=== PATIENT | male | born 1940 | race Caucasian/White ===

== ENCOUNTER 2017-12-19 23:37 | Inpatient (IN) ==
--- NOTE | 2017-12-20 00:34 | ED ---
HPI General Chief Complaint: Fall Stated Complaint: fall inj rt hip/rt arm tonight Time Seen by Provider: 12/20/17 00:14 Source: patient Mode of arrival: ambulatory Limitations: physical limitation History of Present Illness HPI Narrative: 77-year-old male complains of right hip pain. Patient states that he fell on the right hip this evening. Patient denies loss of consciousness. Patient states that he gently hit his head. Patient denies any headache. Patient denies any neck pain. Patient denies any chest pain or shortness of breath. Patient denies abdominal pain. Patient states that he has minor bruising on the skin on the right arm. Patient states that he probably injure 1 of the fingers on the left hand however no pain now. Patient states that he has sharp pain localized right hip upon weightbearing. Patient denies any pain radiation. Patient states that the pain is worse with movement of right hip joint. On a scale of 1-10 the pain is a 5. Patient has a history of COPD, hyperlipidemia, CAD status post stent placement. Patient is on BiPAP at night for COPD. Patient also has history of aortic aneurysm. Patient has family physician in [place]. Patient also has history of vasculitis and on dapsone and prednisone. complaint: fall Onset (ago): hour(s) Fall from: standing Fall witnessed: yes, by family Place fall occurred: home Loss of consciousness: none Prolonged down time: no Symptoms prior to fall: none Context: tripped/slipped Location of injury: pelvis Severity: moderate Severity scale (1-10): 5 Quality: sharp Associated symptoms (after fall): denies Related Data Home Medications Medication Instructions Recorded Confirmed ascorbic acid (vitamin C) [Vitamin 1 g PO BID 12/19/17 12/20/17 C] aspirin 325 mg PO DAILY 12/19/17 12/20/17 atorvastatin [Lipitor] 20 mg PO HS 12/19/17 12/20/17 budesonide-formoterol [Symbicort] 2 puff INHALATION BID 12/19/17 12/20/17 dapsone 75 mg PO DAILY 12/19/17 12/20/17 omega-3 fatty acids [Fish Oil 2,000 mg PO DAILY 12/19/17 12/19/17 Concentrate] prednisone 3 mg PO DAILY 12/19/17 12/19/17 Allergies Allergy/AdvReac Type Severity Reaction Status Date / Time No Known Allergies Allergy Verified 12/20/17 00:05 Review of Systems Except as stated in HPI: all other systems reviewed are negative FORMERLY [facility], [facility]–1983 Medical History Medical History Ankle fracture, right (Acute) COPD (chronic obstructive pulmonary disease) (Acute) Coronary artery disease (Acute) Diverticulitis (Acute) High cholesterol (Acute) Sleep apnea treated with nocturnal BiPAP (Acute) Vasculitis (Acute) Surgical History Surgical History History of coronary artery stent placement (Acute) Hx of cardiac cath (Acute) S/P colon resection (Acute) Social History Social History Substance History: No History of Abuse Second Hand Smoke Exposure: No Smoking Status: Former smoker How Often Do You Have a Drink Containing Alcohol: Never Recent Travel in [facility] within the Last 8 Weeks: Yes Recent Out of Country Travel within the Last 8 Weeks: No Immunization History Tetanus Immunization: <5 Years Hx Influenza Vaccine This Season: Yes Exam Narrative Exam Narrative: GENERAL: Well-nourished, well-developed patient. SKIN: Focused skin assessment warm/dry. HEAD: Normocephalic. EYES: No scleral icterus. No injection or drainage. NECK: Supple, trachea midline. No JVD or lymphadenopathy. CARDIOVASCULAR: Regular rate and rhythm without murmurs, gallops, or rubs. RESPIRATORY: Breath sounds equal bilaterally. No accessory muscle use. GASTROINTESTINAL: Abdomen soft, non-tender, nondistended. MUSCULOSKELETAL: No cyanosis, or edema. Patient has mild tenderness on palpation anterior lateral aspect the right hip joint. Limited range of motion of the right hip secondary to pain. Sensory motor function distally intact. Minor ecchymosis on the skin on the right arm around the elbow area. No tenderness on palpation Bony structures of the right arm. Full range of motion the right shoulder right elbow and right wrist. No tenderness on palpation left hand. Full range of motion of the fingers. Neurologic exam normal. BACK: Nontender without obvious deformity. No CVA tenderness. Course Initial Documented Vital Signs Temperature 98.6 F 12/19/17 23:43 Pulse Rate 60 12/19/17 23:43 Respiratory Rate 16 12/19/17 23:43 Blood Pressure 126/81 12/19/17 23:43 Pulse Oximetry 92 L 12/19/17 23:43 Last Documented Vital Signs Temperature 98.6 F 12/19/17 23:43 Pulse Rate 58 L 12/20/17 01:16 Respiratory Rate 16 12/20/17 01:16 Blood Pressure 115/63 12/20/17 01:16 Pulse Oximetry 93 L 12/20/17 01:16 Medical Decision Making MDM Narrative Medical decision making narrative: 77-year-old male with right hip injury. Differential Diagnosis Differential Diagnosis: Differential diagnoses include contusion, fracture, dislocation. Lab Data Result diagrams: 12/20/17 00:45 12/20/17 00:45 Lab Results 12/20/17 12/20/17 12/20/17 Range/Units 00:45 00:45 00:45 CBC w Diff Auto diff final WBC 7.4 (4.0-11.0) th/mm3 RBC 3.88 L (4.50-5.90) mil/mm3 Hgb 12.5 L (13.0-17.0) gm/dL Hct 38.4 L (39.0-51.0) % MCV 99.1 (80.0-100.0) fL MCH 32.3 (27.0-34.0) pg MCHC 32.6 (32.0-36.0) % RDW 13.4 (11.6-17.2) % Plt Count 170 (150-450) th/mm3 MPV 8.1 (7.0-11.0) fL Neut % (Auto) 58.4 (16.0-70.0) % Lymph % (Auto) 24.8 (9.0-44.0) % [place] % (Auto) 10.7 H (0.0-8.0) % Eos % (Auto) 3.4 (0.0-4.0) % Baso % (Auto) 2.7 H (0.0-2.0) % Neut # (Auto) 4.3 (1.8-7.7) th/mm3 Lymph # (Auto) 1.8 (1.0-4.8) th/mm3 [place] # (Auto) 0.8 (0.0-0.9) th/mm3 Eos # (Auto) 0.3 (0.0-0.4) th/mm3 Baso # (Auto) 0.2 (0.0-0.2) th/mm3 WBC Differential . Differential Comment . PT 11.1 (9.8-11.6) sec INR 1.1 Ratio APTT 23.9 L (24.3-30.1) sec Sodium 141 (136-145) meq/L Potassium 3.5 (3.5-5.1) meq/L Chloride 108 H (98-107) meq/L Carbon Dioxide 25.7 (21.0-32.0) meq/L Anion Gap 7 (5-15) meq/L BUN 14 (7-18) mg/dL Creatinine 1.50 H (0.60-1.30) mg/dL Estimated GFR 45 L (>89) mL/min Random Glucose 111 H (74-106) mg/dL Calcium 8.4 L (8.5-10.1) mg/dL Blood Type Blood Type Recheck Antibody Screen 12/20/17 Range/Units 00:45 CBC w Diff WBC (4.0-11.0) th/mm3 RBC (4.50-5.90) mil/mm3 Hgb (13.0-17.0) gm/dL Hct (39.0-51.0) % MCV (80.0-100.0) fL MCH (27.0-34.0) pg MCHC (32.0-36.0) % RDW (11.6-17.2) % Plt Count (150-450) th/mm3 MPV (7.0-11.0) fL Neut % (Auto) (16.0-70.0) % Lymph % (Auto) (9.0-44.0) % [place] % (Auto) (0.0-8.0) % Eos % (Auto) (0.0-4.0) % Baso % (Auto) (0.0-2.0) % Neut # (Auto) (1.8-7.7) th/mm3 Lymph # (Auto) (1.0-4.8) th/mm3 [place] # (Auto) (0.0-0.9) th/mm3 Eos # (Auto) (0.0-0.4) th/mm3 Baso # (Auto) (0.0-0.2) th/mm3 WBC Differential Differential Comment PT (9.8-11.6) sec INR Ratio APTT (24.3-30.1) sec Sodium (136-145) meq/L Potassium (3.5-5.1) meq/L Chloride (98-107) meq/L Carbon Dioxide (21.0-32.0) meq/L Anion Gap (5-15) meq/L BUN (7-18) mg/dL Creatinine (0.60-1.30) mg/dL Estimated GFR (>89) mL/min Random Glucose (74-106) mg/dL Calcium (8.5-10.1) mg/dL Blood Type O Positive Blood Type Recheck Required Antibody Screen Negative Imaging Data Radiologist's impression: Hip X-Ray 12/20/17 00:23 CONCLUSION: Femoral neck fracture. Pelvis X-Ray 12/20/17 00:23 CONCLUSION: Fracture of the right femoral neck. Chest X-Ray 12/20/17 00:47 CONCLUSION: The lungs are clear. Discharge Plan Discharge Disposition Patient Disposition: 30 Still Patient Physicians Team ED Provider: Umair Cuba Primary Care Provider: Primary Care Valery Bellamy Attending Provider: Aisha Bernardo Discharge Interventions Interventions: Vital Signs Last Done: 12/20/17 01:16 Status ED Status: Admitted Patient
--- NOTE | 2017-12-20 00:57 | XR ---
EXAM DATE: 12/20/2017 12:48 AM EDT AGE/SEX: 77 years / Male INDICATIONS: Right hip pain post fall CLINICAL DATA: This is the patient's initial encounter. Patient reports that signs and symptoms have been present for 1 day and indicates a pain score of 8/10. MEDICAL/SURGICAL HISTORY: None. None. COMPARISON: No prior exams available for comparison. FINDINGS: The bony pelvic ring is intact. Diffuse osteopenia. The arcuate lines the sacrum or symmetric. There is a fracture through the neck of the right femur. Multiple calcified phleboliths in the pelvis. Vasc ular calcification in the femoral region. CONCLUSION: Fracture of the right femoral neck. Electronically signed by: Ramón Mills MD 12/20/2017 12:56 AM EDT
--- NOTE | 2017-12-20 00:58 | XR ---
EXAM DATE: 12/20/2017 12:48 AM EDT AGE/SEX: 77 years / Male INDICATIONS: Right hip pain post fall CLINICAL DATA: This is the patient's initial encounter. Patient reports that signs and symptoms have been present for 1 day and indicates a pain score of 8/10. MEDICAL/SURGICAL HISTORY: None. None. COMPARISON: HPO, PELVIS AP 1V, 12/20/2017. . FINDINGS: There is a fracture through the neck of the femur with minimal separation medially and possible impac tion superiorly. Disruption of the secondary trabecular pattern. The bony acetabulum appears grossly intact. There is osteopenia. CONCLUSION: Femoral neck fracture. Electronically signed by: Ramón Mills MD 12/20/2017 12:56 AM EDT
[2017-12-20] MEDS ORDERED: Sod Chloride 0.9% Inj 1,000 ML IV.CONT SCH (01:00)
--- NOTE | 2017-12-20 01:08 | XR ---
EXAM DATE: 12/20/2017 1:04 AM EDT AGE/SEX: 77 years / Male INDICATIONS: Trauma to chest post fall today CLINICAL DATA: This is the patient's initial encounter. Patient reports that signs and symptoms have been present for 1 day and indicates a pain score of 0/10. MEDICAL/SURGICAL HISTORY: None. None. COMPARISON: No prior exams available for comparison. FINDINGS: A single AP view of the chest demonstrates the lungs to be symmetrically aerated without evidence of mass, infiltrate or effusion. No evidence of pneumothorax. The cardiomediastinal contours are unrema rkable. Osseous structures are intact. CONCLUSION: The lungs are clear. Electronically signed by: Ramón Mills MD 12/20/2017 1:07 AM EDT
[2017-12-20 01:12] LABS: Potassium 3.5 meq/L (3.5-5.1)
[2017-12-20 01:15] LABS: Calcium 8.4 mg/dL (8.5-10.1); Carbon Dioxide 25.7 meq/L (21.0-32.0)
[2017-12-20 01:18] LABS: Activated Partial Thrombo Time 23.9 sec (24.3-30.1); INR 1.1 Ratio; Prothrombin Time 11.1 sec (9.8-11.6)
[2017-12-20 01:29] LABS: Baso # (Auto) 0.2 th/mm3 (0.0-0.2); Baso % (Auto) 2.7 % (0.0-2.0); Eos # (Auto) 0.3 th/mm3 (0.0-0.4); Eos % (Auto) 3.4 % (0.0-4.0); Hematocrit 38.4 % (39.0-51.0); Hemoglobin 12.5 gm/dL (13.0-17.0); Lymph # (Auto) 1.8 th/mm3 (1.0-4.8); Lymph % (Auto) 24.8 % (9.0-44.0); Mean Corpuscular HGB Conc 32.6 % (32.0-36.0); Mean Corpuscular Hemoglobin 32.3 pg (27.0-34.0); Mean Corpuscular Volume 99.1 fL (80.0-100.0); Mean Platelet Volume 8.1 fL (7.0-11.0); Mono # (Auto) 0.8 th/mm3 (0.0-0.9); Mono % (Auto) 10.7 % (0.0-8.0); Neut # (Auto) 4.3 th/mm3 (1.8-7.7); Neut % (Auto) 58.4 % (16.0-70.0); Platelet Count 170 th/mm3 (150-450); Red Blood Count 3.88 mil/mm3 (4.50-5.90); Red Cell Distribution Width 13.4 % (11.6-17.2); White Blood Count 7.4 th/mm3 (4.0-11.0)
[2017-12-20] MEDS ORDERED: Temazepam 15 MG Capsule PO PRN (01:32)
[2017-12-20] MEDS ORDERED: Bisacodyl 10 MG Supp RECTAL PRN ×2 (01:32→16:02)
[2017-12-20] MEDS ORDERED: Morphine Sulfate Inj 2 MG/ML Vial IV.PUSH PRN (01:33)
[2017-12-20] MEDS ORDERED: Chlorhexidine Gluconate 2% 1 Pack (2 Cloths) TOPICAL SCH (03:45)
[2017-12-20] MEDS ORDERED: Metoprolol Tartrate 25 MG Tablet PO SCH (03:45)
[2017-12-20] MEDS: Sod Chloride 0.9% Inj 1,000 ML IV.CONT SCH ×2 (03:51→13:41)
[2017-12-20] MEDS ORDERED: Sodium Chlor 0.9% Inj 500 ML IV.SIG SCH (04:00)
[2017-12-20 04:38] LABS: Bacteria,Urine Rare /hpf; Bilirubin,Urine Negative (Negative); Clarity,Urine Hazy (Clear); Color,Urine Yellow (Yellw/Straw); Glucose,Urine (UA) Negative (Negative); Hyaline Casts,Urine 3 /lpf (0-3); Leukocyte Esterase,Urine Negative (Negative); Mucus,Urine Few /lpf (Occasional); Nitrite,Urine Negative (Negative); Specific Gravity,Urine 1.013 (1.002-1.035)
--- NOTE | 2017-12-20 04:39 | P.HPIM ---
History of Present Illness Primary Care Physician: No Primary Care Physician Chief Complaint: right hip pain History of Present Illness: 77-year-old male with a history of cad, copd, sleep apnea, AAA (unknown size) and hld presented to the ED with complaints of right hip pain. 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 Patient states that he fell on his right hip this evening after loosing his balance stepping near a curb. Patient denies loss of consciousness but did gently hit his head on the side of the car. He states the pain is a sharp, intermittent pain, 6/10, to the right hip with no radiation or associated symptoms. Worse with movement and better with pain medication. Patient denies any chest pain or shortness of breath. Patient is a very athletic person, gym daily and he walks 3 miles a day. Inpatient Certification: I certify that the inpatient services were ordered in accordance with Medicare regulations governing the order. This includes certification that hospital inpatient services are reasonable and necessary and in the case of services not specified as inpatient-only under 42 CFR 419.22(n), that they are appropriately provided as inpatient services in accordance to with the 2-midnight benchmark under 43 CFR 412.3(e) Estimated Total Length of Stay (Days): 2 Plans for Post Hospital Care: Not yet determined Review of Systems All other systems reviewed negative except as stated in HPI PMFSH - History History Provided By: Patient - Medical History Medical History: Medical History (Last Reviewed 12/20/17 @ 00:32 by Umair Cuba MD) Ankle fracture, right COPD (chronic obstructive pulmonary disease) Coronary artery disease Diverticulitis High cholesterol Sleep apnea treated with nocturnal BiPAP Vasculitis - Surgical History Surgical History: Surgical History (Last Reviewed 12/20/17 @ 00:32 by Umair Cuba MD) History of coronary artery stent placement Hx of cardiac cath S/P colon resection - Family History Family History: Family History (Last Updated 12/20/17 @ 04:39 by BARRINGTON Reich) Other No history of cancer - Tobacco History Second Hand Smoke Exposure: No Tobacco Use In Past 30 Days: No Smoking Status: Former smoker Tobacco Type: Cigarettes - Alcohol History How Often Do You Have a Drink Containing Alcohol: Never - Substance Use History Substance History: No History of Abuse - Travel History Recent Travel in the [facility] Within the Last 8 Weeks: Yes Recent Travel Out of the Country Within the Last 8 Weeks: No - Immunization History Tetanus Immunization: <5 Years Hx Influenza Vaccine This Season: Yes Medications and Allergies Active Medications: Active Medications Acetaminophen (Tylenol) 650 mg PO Q4H PRN PRN Reason: Temp > 100.4 Hydrocodone Bitart/Acetaminophen (Oolitic 5/325) 1 tab PO Q4H PRN PRN Reason: PAIN 3-5 Al Hydroxide/Mg Hydroxide (Milk Of Magnesia Liq) 30 ml PO Q12H PRN PRN Reason: Mild Constipation Atorvastatin Calcium (Lipitor) 20 mg PO HS [facility] Bisacodyl (Dulcolax Supp) 10 mg RECTAL DAILY PRN PRN Reason: SEVERE CONSITIPATION Budesonide/Formoterol Fumarate (Symbicort 80/4.5 Mcg Inh) 2 puff INH BID [facility] Chlorhexidine Gluconate (Chlorhexidine 2% Cloth) 3 pack TOPICAL PHYSIOTHERAPY ASSISTANT [facility] Stop: 12/23/17 03:44 Dapsone (Dapsone) 75 mg PO DAILY [facility] Sodium Chloride (Ns Inj) 1,000 mls @ 100 mls/hr IV.CONT .Q10H [facility] Last Admin: 12/20/17 01:04 Dose: 100 mls/hr Sodium Chloride (Ns Inj) 1,000 mls @ 100 mls/hr IV.CONT .Q10H [facility] Lactated Ringer's (Lr 1000 Ml Inj) 1,000 mls @ 30 mls/hr IV.SIG .Q24H [facility] Stop: 12/23/17 03:44 Sodium Chloride (Ns Inj) 500 mls @ 30 mls/hr IV.SIG .Q10H [facility] Stop: 12/23/17 03:44 Lactulose (Lactulose Liq) 30 ml PO DAILY PRN PRN Reason: SEVERE CONSITIPATION Metoprolol Tartrate (Lopressor) 25 mg PO PHYSIOTHERAPY ASSISTANT [facility] Stop: 12/23/17 03:44 Morphine Sulfate (Morphine Inj) 2 mg IV.PUSH Q4H PRN PRN Reason: PAIN 6-10 Ondansetron HCl (Zofran Inj) 4 mg IV.PUSH Q6H PRN PRN Reason: NAUSEA OR VOMITING Povidone Iodine (Betadine 5% Antisepsis Kit) 1 applicatio EACH NARE PHYSIOTHERAPY ASSISTANT [facility] Stop: 12/23/17 03:44 Prednisone (Deltasone) 3 mg PO DAILY [facility] Senna/Docusate Sodium (Tamiko-Colace) 1 tab PO BID [facility] Sennosides (Senokot) 17.2 mg PO Q12H PRN PRN Reason: Moderate Constipation Temazepam (Restoril) 15 mg PO HS PRN PRN Reason: INSOMNIA Allergies Allergy/AdvReac Type Severity Reaction Status Date / Time No Known Allergies Allergy Verified 12/20/17 00:05 Home Medications Medication Instructions Recorded Confirmed Type ascorbic acid (vitamin C) [Vitamin 1 g PO BID 12/19/17 12/20/17 History C] aspirin 325 mg PO DAILY 12/19/17 12/20/17 History atorvastatin [Lipitor] 20 mg PO HS 12/19/17 12/20/17 History budesonide-formoterol [Symbicort] 2 puff INHALATION BID 12/19/17 12/20/17 History dapsone 75 mg PO DAILY 12/19/17 12/20/17 History omega-3 fatty acids [Fish Oil 2,000 mg PO DAILY 12/19/17 12/19/17 History Concentrate] prednisone 3 mg PO DAILY 12/19/17 12/19/17 History Exam Vital signs: Vital Signs 12/19/17 23:43 12/20/17 01:16 Temperature 98.6 F Pulse Rate 60 58 L Respiratory Rate 16 16 Blood Pressure 126/81 115/63 Pulse Oximetry 92 L 93 L Intake & Output 12/19/17 12/19/17 12/20/17 06:59 18:59 06:59 Weight 92.8 kg Other: Weight On Admission 89.811 kg Narrative: GENERAL: This is a well-nourished, well-developed patient, in no apparent distress. SKIN: Right hip ecchymotic EYES: Pupils equal round and reactive, no scleral edema or drainage CARDIOVASCULAR: Regular rate and rhythm without murmurs, gallops, or rubs. RESPIRATORY: Clear to auscultation. Breath sounds equal bilaterally. No wheezes , rales, or rhonchi. GASTROINTESTINAL: Abdomen soft, non-tender, nondistended. Normal active bowel sounds MUSCULOSKELETAL: Extremities without clubbing, cyanosis, or edema. NEURO: Alert & Oriented x4 to person, place, time, situation. Limited ROM to right lower extremity Results - Labs CBC & Chem 7: 12/20/17 00:45 12/20/17 00:45 Labs: Short CBC 12/20/17 Range/Units 00:45 WBC 7.4 (4.0-11.0) th/mm3 Hgb 12.5 L (13.0-17.0) gm/dL Hct 38.4 L (39.0-51.0) % Plt Count 170 (150-450) th/mm3 BMP 12/20/17 00:45 Sodium 141 Potassium 3.5 Chloride 108 H Carbon Dioxide 25.7 BUN 14 Creatinine 1.50 H Calcium 8.4 L - Imaging Impressions Hip X-Ray 12/20/17 00:23 CONCLUSION: Femoral neck fracture. Pelvis X-Ray 12/20/17 00:23 CONCLUSION: Fracture of the right femoral neck. Chest X-Ray 12/20/17 00:47 CONCLUSION: The lungs are clear. Caprini VTE Risk Assessment Caprini VTE Risk Assessment: Moderate/High Risk (score >= 2) Caprini Risk Assessment Model: Point Value = 1 Point Value = 2 Point Value = 3 Point Value = 5 Age 41-60 Minor surgery BMI > 25 kg/m2 Swollen legs Varicose veins or History of unexplained or recurrent spontaneous Oral contraceptives or hormone replacement Sepsis (< 1 month) Serious lung disease, including pneumonia (< 1 month) Abnormal pulmonary function Acute myocardial infarction Congestive heart failure (< 1 month) History of inflammatory bowel disease Medical patient at bed rest Age 61-74 Arthroscopic surgery Major open surgery (> 45 min) Laparoscopic surgery (> 45 min) Malignancy Confined to bed (> 72 hours) Immobilizing plaster cast Central venous access Age >= 75 History of VTE Family history of VTE Factor V Leiden Prothrombin [id number] Lupus anticoagulant Anticardiolipin antibodies Elevated serum homocysteine Heparin-induced thrombocytopenia Other congenital or acquired thrombophilia Stroke (< 1 month) Elective arthroplasty Hip, pelvis, or leg fracture Acute spinal cord injury (< 1 month) Prophylaxis Regimen: Total Risk Factor Score Risk Level Prophylaxis Regimen 0-1 Low Early ambulation 2 Moderate Order ONE of the following: *Sequential Compression Device (SCD) *Heparin 5000 units SQ BID 3-4 Higher Order ONE of the following medications: *Heparin 5000 units SQ TID *Enoxaparin/Lovenox 40 mg SQ daily (WT < 150 kg, CrCl > 30 mL/min) *Enoxaparin/Lovenox 30 mg SQ daily (WT < 150 kg, CrCl > 10-29 mL/min) *Enoxaparin/Lovenox 30 mg SQ BID (WT < 150 kg, CrCl > 30 mL/min) AND/OR *Sequential Compression Device (SCD) 5 or more Highest Order ONE of the following medications: *Heparin 5000 units SQ TID (Preferred with Epidurals) *Enoxaparin/Lovenox 40 mg SQ daily (WT < 150 kg, CrCl > 30 mL/min) *Enoxaparin/Lovenox 30 mg SQ daily (WT < 150 kg, CrCl > 10-29 mL/min) *Enoxaparin/Lovenox 30 mg SQ BID (WT < 150 kg, CrCl > 30 mL/min) AND *Sequential Compression Device (SCD) Assessment and Plan - Plan 77-year-old male with a history of cad, copd, and hld presented to the ED with complaints of right hip pain. Femoral neck fracture, right Hip x-ray reviewed and shows a femoral neck fracture. -Consult orthopedics -N.p.o., IVF -Pain management with IV morphine -Patient may need rehab or home health in [place] will consult case management for assistance. Acute kidney injury, creatinine 1.5, unknown baseline, patient denies any history -Cont IVF, Trend creatinine COPD, not in exacerbation -Resume home medications, duo nebs as needed Hyperlipidemia, chronic -Resume home medications, cardiac diet with no longer n.p.o. DVT prophylaxis: SCDs to non-affected leg Discussed Condition With: Patient and RN H&P: Quality - VTE Deep Vein Thrombosis/Pulmonary Embolism Present on Admission: No
[2017-12-20] MEDS ORDERED: Senna/Docusate Sodium 8.6/50 MG Tablet PO SCH (09:00)
[2017-12-20] MEDS: predniSONE 1 MG Tablet PO SCH (09:46)
--- NOTE | 2017-12-20 10:13 | P.CONOP ---
[facility] Orthopedics Consult Note - [facility] Consult date: 12/20/17 Chief complaint: fracture Right femoral neck Narrative: 77-year-old male with a history of cad, copd, sleep apnea, AAA presented to the ED with complaints of right hip pain. Patient is from [place] here visiting. is an a RN. Patient states that he fell on his right hip this evening after loosing his balance stepping near a curb. Patient denies loss of consciousness but did gently hit his head on the side of the car. He states the pain is a sharp, intermittent pain, 6/10, to the right hip with no radiation or associated symptoms. Worse with movement and better with pain medication. Patient denies any chest pain or shortness of breath. Patient is a very athletic person, gym daily and he walks 3 miles a day. The patient was admitted to the hospital after I had discussed the diagnosis with the emergency room physician. The ER physician had asked that the patient could drive back home prior to having the fracture addressed. I recommended admission. Review of Systems A 12 point review of systems was reviewed and is negative unless as specified in the history of present illness. [facility] - History History Provided By: Patient - Medical History Medical History: Medical History (Last Reviewed 12/20/17 @ 07:14 by Kyle Vergara) Ankle fracture, right COPD (chronic obstructive pulmonary disease) Coronary artery disease Diverticulitis High cholesterol Sleep apnea treated with nocturnal BiPAP Vasculitis - Surgical History Surgical History: Surgical History (Last Reviewed 12/20/17 @ 07:14 by Kyle Vergara) History of coronary artery stent placement Hx of cardiac cath S/P colon resection - Family History Family History: Family History (Last Updated 12/20/17 @ 04:39 by BARRINGTON Reich) Other No history of cancer - Tobacco History Second Hand Smoke Exposure: No Tobacco Use In Past 30 Days: No Smoking Status: Former smoker Tobacco Type: Cigarettes - Alcohol History How Often Do You Have a Drink Containing Alcohol: Never - Substance Use History Substance History: No History of Abuse - Travel History Recent Travel in the [place] Within the Last 8 Weeks: Yes Recent Travel Out of the Country Within the Last 8 Weeks: No - Immunization History Tetanus Immunization: <5 Years Hx Influenza Vaccine This Season: Yes Medications and Allergies Active Medications: Active Medications Acetaminophen (Tylenol) 650 mg PO Q4H PRN PRN Reason: Temp > 100.4 Hydrocodone Bitart/Acetaminophen (Honaker 5/325) 1 tab PO Q4H PRN PRN Reason: PAIN 3-5 Al Hydroxide/Mg Hydroxide (Milk Of Magnesia Liq) 30 ml PO Q12H PRN PRN Reason: Mild Constipation Albuterol (Duoneb Neb (Prn)) 1 ampul NEB Q4HR NEB PRN PRN Reason: SHORTNESS OF BREATH Atorvastatin Calcium (Lipitor) [address] [facility] Bisacodyl (Dulcolax Supp) 10 mg RECTAL DAILY PRN PRN Reason: SEVERE CONSITIPATION Budesonide/Formoterol Fumarate (Symbicort 80/4.5 Mcg Inh) 2 puff INH BID [facility] Chlorhexidine Gluconate (Chlorhexidine 2% Cloth) 3 pack TOPICAL JIG FILLER [facility] Stop: 12/23/17 03:44 Dapsone (Dapsone) 75 mg PO DAILY [facility] Last Admin: 12/20/17 09:46 Dose: 75 mg Sodium Chloride (Ns Inj) 1,000 mls @ 100 mls/hr IV.CONT .Q10H [facility] Last Admin: 12/20/17 03:51 Dose: 100 mls/hr Lactated Ringer's (Lr 1000 Ml Inj) 1,000 mls @ 30 mls/hr IV.SIG .Q24H [facility] Stop: 12/23/17 03:44 Sodium Chloride (Ns Inj) 500 mls @ 30 mls/hr IV.SIG .Q10H [facility] Stop: 12/23/17 03:44 Lactulose (Lactulose Liq) 30 ml PO DAILY PRN PRN Reason: SEVERE CONSITIPATION Metoprolol Tartrate (Lopressor) 25 mg PO JIG FILLER [facility] Stop: 12/23/17 03:44 Morphine Sulfate (Morphine Inj) 2 mg IV.PUSH Q4H PRN PRN Reason: PAIN 6-10 Last Admin: 12/20/17 04:34 Dose: 2 mg Ondansetron HCl (Zofran Inj) 4 mg IV.PUSH Q6H PRN PRN Reason: NAUSEA OR VOMITING Povidone Iodine (Betadine 5% Antisepsis Kit) 1 applicatio EACH NARE JIG FILLER [facility] Stop: 12/23/17 03:44 Prednisone (Deltasone) 3 mg PO DAILY [facility] Last Admin: 12/20/17 09:46 Dose: 3 mg Senna/Docusate Sodium (Tamiko-Colace) 1 tab PO BID [facility] Last Admin: 12/20/17 09:36 Dose: Not Given Sennosides (Senokot) 17.2 mg PO Q12H PRN PRN Reason: Moderate Constipation Allergies Allergy/AdvReac Type Severity Reaction Status Date / Time No Known Allergies Allergy Verified 12/20/17 00:05 Home Medications Medication Instructions Recorded Confirmed Type ascorbic acid (vitamin C) [Vitamin 1 g PO BID 12/19/17 12/20/17 History C] aspirin 325 mg PO DAILY 12/19/17 12/20/17 History atorvastatin [Lipitor] 20 mg PO HS 12/19/17 12/20/17 History budesonide-formoterol [Symbicort] 2 puff INHALATION BID 12/19/17 12/20/17 History dapsone 75 mg PO DAILY 12/19/17 12/20/17 History omega-3 fatty acids [Fish Oil 2,000 mg PO DAILY 12/19/17 12/19/17 History Concentrate] prednisone 3 mg PO DAILY 12/19/17 12/19/17 History Exam Vital signs: Vital Signs 12/19/17 23:43 12/20/17 01:16 12/20/17 04:00 Temperature 98.6 F 98.9 F Pulse Rate 60 58 L 60 Respiratory Rate 16 16 17 Blood Pressure 126/81 115/63 134/75 Pulse Oximetry 92 L 93 L 92 L 12/20/17 08:00 Temperature 99.2 F Pulse Rate 64 Respiratory Rate 16 Blood Pressure 116/61 Pulse Oximetry 93 L Intake & Output 12/19/17 12/20/17 12/20/17 18:59 06:59 18:59 Weight 92.8 kg Other: # Voids 1 Weight On Admission 89.811 kg Narrative: GENERAL: The patient is awake, alert and oriented x3. The patient is no significant distress. The patient's is at the bedside with him. PSYCHIATRIC: Normal affect, insight, and judgment. HEENT: Head is atraumatic. Oropharynx is moist. Extraocular muscles are intact. NECK: Non-tender and supple. LUNGS: No audible wheezing. He has normal inspiratory effort with no signs of dyspnea HEART: Regular rate and rhythm. ABDOMEN: Soft, nontender, and nondistended. BACK: No CVA tenderness. EXTREMITIES/SKIN: The right hip has some mild swelling. No wounds are noted. The patient's sensation is intact on the right foot. He actively move the toes well. He has a 2+ dorsalis pedis pulse. Examination of the bilateral upper extremities and the left lower extremity shows normal alignment with good range of motion. Results - Labs Result Diagrams: 12/20/17 00:45 12/20/17 00:45 Labs: Laboratory Results - last 24 hr 12/20/17 12/20/17 12/20/17 00:45 00:45 00:45 CBC w Diff Auto diff final WBC 7.4 RBC 3.88 L Hgb 12.5 L Hct 38.4 L MCV 99.1 MCH 32.3 MCHC 32.6 RDW 13.4 Plt Count 170 MPV 8.1 Neut % (Auto) 58.4 Lymph % (Auto) 24.8 Lucas % (Auto) 10.7 H Eos % (Auto) 3.4 Baso % (Auto) 2.7 H Neut # (Auto) 4.3 Lymph # (Auto) 1.8 Lucas # (Auto) 0.8 Eos # (Auto) 0.3 Baso # (Auto) 0.2 WBC Differential . Differential Comment . PT 11.1 INR 1.1 APTT 23.9 L Sodium 141 Potassium 3.5 Chloride 108 H Carbon Dioxide 25.7 Anion Gap 7 BUN 14 Creatinine 1.50 H Estimated GFR 45 L Random Glucose 111 H Calcium 8.4 L Urine Color Urine Clarity Urine pH Ur Specific [place] Urine Protein Urine Glucose (UA) Urine Ketones Urine Occult Blood Urine Nitrate Urine Bilirubin Urine Urobilinogen Ur Leukocyte Esterase Urine RBC Urine WBC Urine Bacteria Hyaline Casts Urine Mucus Micro UA Comment Urine Culture Comments Blood Type Blood Type Recheck Antibody Screen 12/20/17 12/20/17 00:45 04:20 CBC w Diff WBC RBC Hgb Hct MCV MCH MCHC RDW Plt Count MPV Neut % (Auto) Lymph % (Auto) Lucas % (Auto) Eos % (Auto) Baso % (Auto) Neut # (Auto) Lymph # (Auto) Lucas # (Auto) Eos # (Auto) Baso # (Auto) WBC Differential Differential Comment PT INR APTT Sodium Potassium Chloride Carbon Dioxide Anion Gap BUN Creatinine Estimated GFR Random Glucose Calcium Urine Color Yellow Urine Clarity Hazy H Urine pH 5.0 Ur Specific [place] 1.013 Urine Protein Negative Urine Glucose (UA) Negative Urine Ketones Negative Urine Occult Blood Negative Urine Nitrate Negative Urine Bilirubin Negative Urine Urobilinogen 2.0 H Ur Leukocyte Esterase Negative Urine RBC 1 Urine WBC 1 Urine Bacteria Rare H Hyaline Casts 3 Urine Mucus Few H Micro UA Comment Culture not ind Urine Culture Comments Culture not ind Blood Type O Positive Blood Type Recheck Required Antibody Screen Negative - Diagnostic results Imaging: Impressions Hip X-Ray 12/20/17 00:23 CONCLUSION: Femoral neck fracture. The femoral neck fracture is mildly displaced in the mid cervical region. There is a little bit of valgus impaction with some mild shortening. Pelvis X-Ray 12/20/17 00:23 CONCLUSION: Fracture of the right femoral neck. I have reviewed the images for this radiology study. I agree with the interpretation given by the radiologist. Chest X-Ray 12/20/17 00:47 CONCLUSION: The lungs are clear. Assessment and Plan - Assessment and Plan Right hip mildly displaced femoral neck fracture. We discussed that this is a serious condition effecting this patient's extremity. Nonoperative and operative options were discussed and reviewed. Potential consequences of both of these options were reviewed. I do recommend surgical management for this condition. Nonoperative management has significant chance for failure including displacement of the femoral neck fracture which could lead to inability to ambulate and significant dysfunction of the right hip and lower extremity. We discussed 2 different operative options including closed reduction and percutaneous screw fixation versus right hip hemiarthroplasty. We discussed all of the risks and benefits associated with each of these options and we talked about postoperative rehabilitation and weightbearing status associated with each of these options. We discussed risks of failure of the surgeries and need for reoperation which used of these options. We discussed how these options may affect his early and long-term recovery and ability to travel, etc. Based on these conversations the patient has decided to move forward with a right hip hemiarthroplasty. The patient would like to move forward with urgent surgical management for this condition. The risks and benefits of surgical management have been discussed in detail. The risks of surgery include, but are not limited to, injury to nerves, blood vessels, bleeding, infection, non-healing; loss of range on motion , dysfunction or weakness of the associated joints; leg length inequality, dislocation, blood clots, pneumonia, stroke, heart attack, and . - Attending Attestation Attending Attestation: A mid level provider in my office, nurse practitioner or PA, may see this patient on a follow up basis and continue to implement the plan including: starting or adjusting medications, injections of muscle, tendons, bursa or joints, cast application, orthotic or brace application, physical therapy, further radiographic studies including X-ray, MRI, CT, ultrasound or bone scan , vascular studies, neurological studies, or other specialist consultations, and proceeding with surgical management as appropriate.
[2017-12-20] MEDS: Budesonide-Formoterol 80/4.5 MCG 6.9 GM Inhaler INH SCH ×3 (11:49→23:35)
[2017-12-20] MEDS ORDERED: Lidocaine PF 1% Inj 5 ML Syringe INFILTRATN ONE (12:00)
[2017-12-20] MEDS ORDERED: Neostigmine Inj 5 MG/5 ML Syringe IV.PUSH ONE (12:00)
[2017-12-20] MEDS ORDERED: Phenylephrine/NS 1000 MCG/10ML Syringe IV.PUSH ONE (12:00)
[2017-12-20] MEDS ORDERED: Glycopyrrolate Inj 1 MG/5 ML Syringe IV.PUSH ONE (12:00)
--- NOTE | 2017-12-20 12:44 | P.PN ---
Subjective Interval history: Follow-up hip injury. Patient awaiting surgery. Denies anginal symptoms. He has good exercise tolerance. He has history of thoracic aneurysm evaluated by cardiology in October advised to have follow-up imaging study in January 2018 denies chest and back pain. No shortness of breath. EKG tracing showed sinus rhythm with no ST-T changes Physical Exam Vital signs: Vital Signs 12/19/17 23:43 12/20/17 01:16 12/20/17 04:00 Temperature 98.6 F 98.9 F Pulse Rate 60 58 L 60 Respiratory Rate 16 16 17 Blood Pressure 126/81 115/63 134/75 Pulse Oximetry 92 L 93 L 92 L 12/20/17 08:00 Temperature 99.2 F Pulse Rate 64 Respiratory Rate 16 Blood Pressure 116/61 Pulse Oximetry 93 L Intake & Output 12/19/17 12/20/17 12/20/17 18:59 06:59 18:59 Weight 92.8 kg Other: # Voids 1 Weight On Admission 89.811 kg Narrative: GENERAL: Well-developed and well-nourished in no distress SKIN: Warm and dry. HEAD: Atraumatic. Normocephalic. EYES: Pupils equal and round. No scleral icterus. No injection or drainage. ENT: No nasal bleeding or discharge. Mucous membranes pink and moist. NECK: Trachea midline. No JVD. CARDIOVASCULAR: Regular rate and rhythm. RESPIRATORY: No accessory muscle use. Clear to auscultation. Breath sounds equal bilaterally. GASTROINTESTINAL: Abdomen soft, non-tender, nondistended. MUSCULOSKELETAL: Extremities without clubbing, cyanosis, or edema. Tender right hip NEUROLOGICAL: Awake and alert. No obvious cranial nerve deficits. Motor grossly within normal limits. Five out of 5 muscle strength in the arms and legs. Normal speech. PSYCHIATRIC: Appropriate mood and affect; insight and judgment normal. Results - Labs CBC & Chem 7: 12/20/17 00:45 12/20/17 00:45 Laboratory Results - last 24 hr 12/20/17 12/20/17 12/20/17 00:45 00:45 00:45 CBC w Diff Auto diff final WBC 7.4 RBC 3.88 L Hgb 12.5 L Hct 38.4 L MCV 99.1 MCH 32.3 MCHC 32.6 RDW 13.4 Plt Count 170 MPV 8.1 Neut % (Auto) 58.4 Lymph % (Auto) 24.8 Lawrence % (Auto) 10.7 H Eos % (Auto) 3.4 Baso % (Auto) 2.7 H Neut # (Auto) 4.3 Lymph # (Auto) 1.8 Lawrence # (Auto) 0.8 Eos # (Auto) 0.3 Baso # (Auto) 0.2 WBC Differential . Differential Comment . PT 11.1 INR 1.1 APTT 23.9 L Sodium 141 Potassium 3.5 Chloride 108 H Carbon Dioxide 25.7 Anion Gap 7 BUN 14 Creatinine 1.50 H Estimated GFR 45 L Random Glucose 111 H Calcium 8.4 L Total Creatine Kinase Urine Color Urine Clarity Urine pH Ur Specific [place] Urine Protein Urine Glucose (UA) Urine Ketones Urine Occult Blood Urine Nitrate Urine Bilirubin Urine Urobilinogen Ur Leukocyte Esterase Urine RBC Urine WBC Urine Bacteria Hyaline Casts Urine Mucus Micro UA Comment Urine Culture Comments Blood Type Blood Type Recheck Antibody Screen 12/20/17 12/20/17 12/20/17 00:45 04:20 10:35 CBC w Diff WBC RBC Hgb Hct MCV MCH MCHC RDW Plt Count MPV Neut % (Auto) Lymph % (Auto) [place] % (Auto) Eos % (Auto) Baso % (Auto) Neut # (Auto) Lymph # (Auto) Lawrence # (Auto) Eos # (Auto) Baso # (Auto) WBC Differential Differential Comment PT INR APTT Sodium Potassium Chloride Carbon Dioxide Anion Gap BUN Creatinine Estimated GFR Random Glucose Calcium Total Creatine Kinase 92 Urine Color Yellow Urine Clarity Hazy H Urine pH 5.0 Ur Specific [place] 1.013 Urine Protein Negative Urine Glucose (UA) Negative Urine Ketones Negative Urine Occult Blood Negative Urine Nitrate Negative Urine Bilirubin Negative Urine Urobilinogen 2.0 H Ur Leukocyte Esterase Negative Urine RBC 1 Urine WBC 1 Urine Bacteria Rare H Hyaline Casts 3 Urine Mucus Few H Micro UA Comment Culture not ind Urine Culture Comments Culture not ind Blood Type O Positive Blood Type Recheck Required Antibody Screen Negative - Imaging Impressions Hip X-Ray 12/20/17 00:23 CONCLUSION: Femoral neck fracture. Pelvis X-Ray 12/20/17 00:23 CONCLUSION: Fracture of the right femoral neck. Chest X-Ray 12/20/17 00:47 CONCLUSION: The lungs are clear. Assessment and Plan - Plan 77-year-old male with a history of cad, copd, and hld presented to the ED with complaints of right hip pain. Femoral neck fracture, right Hip x-ray reviewed and shows a femoral neck fracture. -Consulted orthopedics -N.p.o., IVF -Pain management with IV morphine -Patient may need rehab or home health in [place]., will consult case management for assistance. Acute kidney injury, creatinine 1.5, unknown baseline, patient denies any history -Cont IVF, Trend creatinine. CK not elevated COPD, not in exacerbation -Resume home medications, duo nebs as needed Hyperlipidemia, chronic -Resume home medications, cardiac diet with no longer n.p.o. History of CAD and thoracic aneurysm. Asymptomatic. Patient has good exercise tolerance. DVT prophylaxis: SCDs to non-affected leg Discharge Planning: Per orthopedic surgery
--- NOTE | 2017-12-20 13:50 | ECG ---
Date Performed: 12/20/2017 Time Performed: 01:07:20 PTAGE: 77 years EKG: SINUS BRADYCARDIA MARKED LEFT AXIS DEVIATION INCOMPLETE RIGHT BUNDLE BRANCH BLOCK ABNORMAL ECG NO PREVIOUS TRACING DOCTOR: Michelle Padilla Interpretating Date/Time 12/20/2017 13:50:18
[2017-12-20] MEDS ORDERED: Tranexamic Acid Inj 1,000 MG/10 ML Ampul ONE (14:13)
[2017-12-20] MEDS ORDERED: Bupivacaine Liposomal PF 1.3% Inj 20 ML Vial ONE (14:13)
[2017-12-20] MEDS ORDERED: ceFAZolin 2 GM Premix Inj 2 GM/50 ML PIGGYBACK IV.SIG ONE (14:52)
--- NOTE | 2017-12-20 15:59 | P.OP ---
- Preoperative Diagnosis (1) Displaced fracture of right femoral neck - Postoperative Diagnosis (1) Displaced fracture of right femoral neck Date of procedure: 12/20/17 Procedure: Right hip hemiarthroplasty Anesthesia: GETA Surgeon: Jose L Beckford MD Medication Manager: BARRINGTON Quiñonez The surgical procedure was assisted by my Advanced Registered Nurse Practitioner. My DATABASES SOFTWARE CONSULTANT presence was necessary throughout this case for the manipulation and positioning of the surgical extremity. My DATABASES SOFTWARE CONSULTANT was assisting me throughout the duration of this procedure. The skill set of an Advance Registered Nurse Practitioner was medically necessary to complete this procedure. During the surgical case, the surgical services manager was working at the back table and the Advance Registered Nurse Practitioner was directly assisting me. Operation and Findings: IMPLANT DESCRIPTION: 1. Corail femoral stem size 13, no collar, standard offset. 2. Bipolar femoral head/neck outer diameter 51, inner diameter 28, +1.5 neck length. ESTIMATED BLOOD LOSS: 125 cc. JUSTIFICATION FOR PROCEDURE: This patient has a displaced femoral neck fracture. The patient understands the risks of surgery include but are not limited to injury to nerves, blood vessels, bleeding, infection, leg length discrepancy, continued pain, inability to ambulate, DVT, pulmonary embolus, pneumonia, stroke, heart attack, and . PROCEDURE: The patient was brought back to the operative theatre. Adequate anesthesia was obtained. The patient received intravenous vancomycin and Ancef. The patient was carefully placed on the operative table in the lateral decubitus position with an axillary roll and a well-padded down leg. The lower extremity was prepped and draped in the usual sterile fashion. We proceeded with a standard curvilinear incision centered around the tip of the greater trochanter. We then dissected through the deep fascia and placed a Charnley retractor protecting the sciatic nerve. The greater trochanteric bursa was reflected. We then incised through the piriformis attachment and tagged this with a #2 FiberWire. We then incised through the capsule in a T- shaped fashion and tagged this with a #2 FiberWire as well. We identified a displaced femoral neck fracture. An osteotomy was performed through the residual femoral neck. This bone was then removed followed by removal of the femoral head. The acetabulum was inspected and adequate cartilage stock was identified. We then trialed the femoral head in the acetabulum. The proximal femur was prepared with a rongeur, then a box osteotome, then a canal finder followed by a lateralizing reamer. We sequentially broached the proximal femur. We calcar planed the proximal femur and irrigated removing any remnants of the bone. We trialed the hip with the broach in place. The final femoral stem was impacted into position. Leg lengths were evaluated. We evaluated stability of the hip with the hip in the "position of sleep" and the hip flexed up to 90 and internally rotated. We additionally tested both a "shuck" test and hip extension, confirming there was no undue tension while flexing the knee to 90 during full hip extension. The final bipolar head was impacted and the hip was reduced. Once again we irrigated. We then repaired the capsule and the piriformis with the FiberWire suture. The deep fascia was closed with a #2 Stratafix, followed by 2-0 Vicryl in the skin and pepper. The post-op plan is to weight-bear as tolerated. We will follow posterior total hip precautions, including the use of a canvas knee splint. DVT prophylaxis will be performed with BENITA Leslie, early mobilization, and Lovenox followed by aspirin.
[2017-12-20] MEDS ORDERED: Post-op Orders (for Pharmacy) OTHER STA (16:02)
[2017-12-20] MEDS ORDERED: Aluminum/Magnesium/Simethacone Susp 30 ML UDC PO PRN (16:02)
[2017-12-20] MEDS ORDERED: Zolpidem Tartrate 5 MG Tablet PO PRN (16:02)
[2017-12-20] MEDS ORDERED: Enoxaparin Inj 40 MG/0.4 ML Syringe SQ SCH (16:15)
[2017-12-20] MEDS ORDERED: fentaNYL Citrate Inj 100 MCG/2 ML Ampul ONE (16:35)
--- NOTE | 2017-12-20 17:06 | XR ---
EXAM DATE: 12/20/2017 5:02 PM EDT AGE/SEX: 77 years / Male INDICATIONS: Post op right hip. CLINICAL DATA: This is the patient's subsequent encounter. Patient reports that signs and symptoms h ave been present for 1 day and indicates a pain score of Nonresponsive. MEDICAL/SURGICAL HISTORY: None. . Right hip replacement. COMPARISON: . FINDINGS: 4 views of the right hip and pelvis. Right hip hemiarthroplasty noted. Alignment within normal limits . Diffuse femoral artery calcifications. CONCLUSION: Right hip hemiarthroplasty now noted. Electronically signed by: Ji Newell MD 12/20/2017 5:05 PM EDT
--- NOTE | 2017-12-20 17:09 | XR ---
EXAM DATE: 12/20/2017 5:03 PM EDT AGE/SEX: 77 years / Male INDICATIONS: Left hand pain following a fall. CLINICAL DATA: This is the patient's initial encounter. Patient reports that signs and symptoms have been present for 1 day and indicates a pain score of 3/10. MEDICAL/SURGICAL HISTORY: None. . Right hip replacement. COMPARISON: . FINDINGS: 3 views of left hand. Large osteophytes of the index finger and long finger distal interphalangeal michael ints. Moderate-sized osteophytes of the thumb interphalangeal joint. Bone alignment within normal fernandez its. No evidence of fracture. CONCLUSION: Moderate severity osteoarthritic findings of the hand. No evidence of fracture. Electronically signed by: Ji Newell MD 12/20/2017 5:08 PM EDT
[2017-12-20] MEDS ORDERED: SODIUM CHLOR 0.9% IV.SIG SCH (18:00)
[2017-12-20] MEDS ORDERED: TRANEXAMIC ACID IV.SIG SCH (18:00)
[2017-12-20] MEDS: Multivitamin/Minerals Therapeutic Tablet PO SCH (20:15)
[2017-12-20] MEDS: Morphine Inj 4 MG/ML Vial IV.PUSH PRN ×2 (20:15→23:40)
[2017-12-20] MEDS: Senna/Docusate Sodium 8.6/50 MG Tablet PO SCH (20:16)
[2017-12-21] MEDS: Sod Chloride 0.9% Inj 1,000 ML IV.CONT SCH ×2 (06:02→06:03)
[2017-12-21] MEDS: Acetaminophen 325 MG Tablet PO PRN (07:14)
--- NOTE | 2017-12-21 07:54 | P.PNOP ---
Subjective Interval history: The patient is resting in bed in NAD. at bedside. Patient and had multiple questions regarding surgery. Minimal pain to the right hip. Physical Exam Vital signs: Vital Signs 12/20/17 08:00 12/20/17 12:00 12/20/17 16:26 Temperature 99.2 F 97.9 F 98.4 F Pulse Rate 64 55 L 57 L Respiratory Rate 16 16 14 Blood Pressure 116/61 107/59 L 113/58 L Pulse Oximetry 93 L 90 L 94 L 12/20/17 16:30 12/20/17 16:45 12/20/17 17:05 Temperature Pulse Rate 53 L 58 L 57 L Respiratory Rate 13 13 13 Blood Pressure 117/62 110/55 L 116/60 Pulse Oximetry 94 L 93 L 94 L 12/20/17 17:18 12/20/17 20:00 12/21/17 00:00 Temperature 97.6 F 98 F 98.6 F Pulse Rate 49 L 63 66 Respiratory Rate 14 20 20 Blood Pressure 108/63 103/63 126/60 Pulse Oximetry 96 95 97 12/21/17 04:00 12/21/17 07:19 Temperature 101.7 F H 99.4 F Pulse Rate 77 Respiratory Rate 18 Blood Pressure 115/59 L Pulse Oximetry 95 Intake & Output 12/20/17 12/21/17 12/21/17 18:59 06:59 18:59 Intake Total 1500 / 1500 1100 / 1100 Output Total 150 / 150 650 / 650 Balance 1350 / 1350 450 / 450 Weight 93 kg Intake: IV 100 / 100 1100 / 1100 NS Inj 1,000 ML @ 80 mls/hr IV. 1000 / 1000 CONT .[id number] RAYNA Rx#:[id number] Ancef Inj 1,000 MG In NS Inj 100 / 100 100 / 100 100 ML @ 200 mls/hr IV.SIG Q6H RAYNA Rx#:[id number] Oral 400 / 400 Anesthesia Amount 1000 / 1000 Output: Urine 650 / 650 Estimated Blood Loss 150 / 150 Other: Date of Last Bowel Movement 12/19/17 Narrative: The patient's dressings are C/D/I. EHL/TA/G intact. 2+ pedal pulse. Calf is soft and nontender. + SILT distally. CKS in place. Results - Labs CBC & Chem 7: 12/20/17 00:45 12/20/17 00:45 Laboratory Results - last 24 hr 12/20/17 10:35 Total Creatine Kinase 92 - Imaging Impressions Hip X-Ray 12/20/17 16:01 CONCLUSION: Right hip hemiarthroplasty now noted. Hand X-Ray 12/20/17 16:26 CONCLUSION: Moderate severity osteoarthritic findings of the hand. No evidence of fracture. Assessment and Plan - Assessment and Plan POD #1: Right hip hemiarthroplasty 1. WBAT RLE 2. Lovenox followed by ASA for DVT prophylaxis 3. Ice to the right hip PRN 4. Posterior hip precautions. 5. Stable per ortho. 6. F/U in the office in 1-[address] Beckford or BARRINGTON Scott
[2017-12-21 08:10] LABS: Baso % (Auto) 0.5 % (0.0-2.0); Eos # (Auto) 0.2 th/mm3 (0.0-0.4); Eos % (Auto) 2.6 % (0.0-4.0); Hematocrit 30.7 % (39.0-51.0); Hemoglobin 10.2 gm/dL (13.0-17.0); Lymph # (Auto) 1.5 th/mm3 (1.0-4.8); Lymph % (Auto) 17.4 % (9.0-44.0); Mean Corpuscular HGB Conc 33.2 % (32.0-36.0); Mean Corpuscular Hemoglobin 32.7 pg (27.0-34.0); Mean Corpuscular Volume 98.4 fL (80.0-100.0); Mean Platelet Volume 7.9 fL (7.0-11.0); Mono % (Auto) 11.8 % (0.0-8.0); Neut % (Auto) 67.7 % (16.0-70.0); Platelet Count 116 th/mm3 (150-450); Red Blood Count 3.12 mil/mm3 (4.50-5.90); White Blood Count 8.9 th/mm3 (4.0-11.0)
[2017-12-21 08:37] LABS: Albumin 2.7 g/dL (3.4-5.0); Anion Gap 7 meq/L (5-15); Aspartate Aminotransferase 32 U/L (15-37); Blood Urea Nitrogen 11 mg/dL (7-18); Calcium 7.5 mg/dL (8.5-10.1); Carbon Dioxide 26.1 meq/L (21.0-32.0); Chloride 106 meq/L (98-107); Glomerular Filtration Rate 43 mL/min (>89); Glucose,Random 119 mg/dL (74-106); Potassium 3.7 meq/L (3.5-5.1); Sodium 139 meq/L (136-145)
[2017-12-21] MEDS: Senna/Docusate Sodium 8.6/50 MG Tablet PO SCH ×2 (08:41→20:42)
[2017-12-21] MEDS: predniSONE 1 MG Tablet PO SCH (08:41)
[2017-12-21] MEDS: Multivitamin/Minerals Therapeutic Tablet PO SCH ×2 (08:41→20:41)
[2017-12-21] MEDS: Budesonide-Formoterol 80/4.5 MCG 6.9 GM Inhaler INH SCH (08:43)
[2017-12-21 08:52] LABS: Alanine Aminotransferase 22 U/L (12-78); Alkaline Phosphatase 48 U/L (45-117); Creatine Kinase 396 U/L (39-308); Total Protein 5.1 g/dL (6.4-8.2)
[2017-12-21 09:16] LABS: CKMB Percent 0.7 % (0.0-4.0); Creatine Kinase MB 2.7 ng/mL (0.5-3.6)
[2017-12-21 13:23] LABS: Bilirubin,Urine Negative (Negative); Clarity,Urine Clear (Clear); Color,Urine Yellow (Yellw/Straw); Glucose,Urine (UA) Negative (Negative); Hyaline Casts,Urine 6 /lpf (0-3); Leukocyte Esterase,Urine Negative (Negative); Mucus,Urine Few /lpf (Occasional); Nitrite,Urine Negative (Negative); Specific Gravity,Urine 1.015 (1.002-1.035); Squamous Epithelial Cell,Urine 1 /hpf (0-5)
[2017-12-21] MEDS: Enoxaparin Inj 40 MG/0.4 ML Syringe SQ SCH (14:42)
--- NOTE | 2017-12-21 15:05 | P.PN ---
Subjective Interval history: Follow-up hip arthroplasty. Developed acute urinary retention requiring Otriz catheter insertion today. Denies history of BPH. Passing gas but no BM. Physical Exam Vital signs: Vital Signs 12/20/17 16:26 12/20/17 16:30 12/20/17 16:45 Temperature 98.4 F Pulse Rate 57 L 53 L 58 L Respiratory Rate 14 13 13 Blood Pressure 113/58 L 117/62 110/55 L Pulse Oximetry 94 L 94 L 93 L 12/20/17 17:05 12/20/17 17:18 12/20/17 20:00 Temperature 97.6 F 98 F Pulse Rate 57 L 49 L 63 Respiratory Rate 13 14 20 Blood Pressure 116/60 108/63 103/63 Pulse Oximetry 94 L 96 95 12/21/17 00:00 12/21/17 00:33 12/21/17 04:00 Temperature 98.6 F 98.9 F 101.7 F H Pulse Rate 66 77 Respiratory Rate 20 18 Blood Pressure 126/60 115/59 L Pulse Oximetry 97 95 12/21/17 07:19 12/21/17 08:00 12/21/17 12:00 Temperature 99.4 F 99.1 F 97.5 F L Pulse Rate 61 66 Respiratory Rate 14 16 Blood Pressure 92/55 L 98/55 L Pulse Oximetry 94 L 91 L Intake & Output 12/20/17 12/21/17 12/21/17 18:59 06:59 18:59 Intake Total 1500 / 1500 1100 / 1100 Output Total 150 / 150 650 / 650 Balance 1350 / 1350 450 / 450 Weight 93 kg Intake: IV 100 / 100 1100 / 1100 NS Inj 1,000 ML @ 80 mls/hr IV. 1000 / 1000 CONT .[id number] [facility] Rx#:[id number] Ancef Inj 1,000 MG In NS Inj 100 / 100 100 / 100 100 ML @ 200 mls/hr IV.SIG Q6H [facility] Rx#:[id number] Oral 400 / 400 Anesthesia Amount 1000 / 1000 Output: Urine 650 / 650 Estimated Blood Loss 150 / 150 Other: Date of Last Bowel Movement 12/19/17 12/19/17 Narrative: GENERAL: Well-developed and well-nourished in no distress SKIN: Warm and dry. CARDIOVASCULAR: Regular rate and rhythm. RESPIRATORY: No accessory muscle use. Clear to auscultation. Breath sounds equal bilaterally. GASTROINTESTINAL: Abdomen soft, non-tender, nondistended. MUSCULOSKELETAL: Extremities without clubbing, cyanosis, or edema. No obvious deformities. NEUROLOGICAL: Awake and alert. No obvious cranial nerve deficits. Motor grossly within normal limits. Five out of 5 muscle strength in the arms and legs. Normal speech. PSYCHIATRIC: Appropriate mood and affect; insight and judgment normal. Results - Labs CBC & Chem 7: 12/21/17 07:28 12/21/17 07:28 Laboratory Results - last 24 hr 12/21/17 12/21/17 12/21/17 07:28 07:28 13:00 WBC 8.9 RBC 3.12 L Hgb 10.2 L D Hct 30.7 L MCV 98.4 MCH 32.7 MCHC 33.2 RDW 14.0 Plt Count 116 L D MPV 7.9 Neut % (Auto) 67.7 Lymph % (Auto) 17.4 [place] % (Auto) 11.8 H Eos % (Auto) 2.6 Baso % (Auto) 0.5 Neut # (Auto) 6.0 Lymph # (Auto) 1.5 [place] # (Auto) 1.0 H Eos # (Auto) 0.2 Baso # (Auto) 0.0 WBC Differential . Differential Comment Auto diff final Sodium 139 Potassium 3.7 Chloride 106 Carbon Dioxide 26.1 Anion Gap 7 BUN 11 Creatinine 1.56 H Estimated GFR 43 L Random Glucose 119 H Calcium 7.5 L D Total Bilirubin 0.7 AST 32 ALT 22 Alkaline Phosphatase 48 Total Creatine Kinase 396 H CK-MB (CK-2) 2.7 CK-MB (CK-2) % 0.7 Total Protein 5.1 L Albumin 2.7 L Urine Color Yellow Urine Clarity Clear Urine pH 5.0 Ur Specific [place] 1.015 Urine Protein Negative Urine Glucose (UA) Negative Urine Ketones Negative Urine Occult Blood Negative Urine Nitrate Negative Urine Bilirubin Negative Urine Urobilinogen Less than 2 Ur Leukocyte Esterase Negative Urine RBC 1 Urine WBC 1 Ur Squamous Epith Cells 1 Hyaline Casts 6 Urine Mucus Few H Micro UA Comment Culture not ind Urine Culture Comments Culture not ind - Imaging Impressions Hip X-Ray 12/20/17 16:01 CONCLUSION: Right hip hemiarthroplasty now noted. Hand X-Ray 12/20/17 16:26 CONCLUSION: Moderate severity osteoarthritic findings of the hand. No evidence of fracture. - Procedures Hip arthroplasty Assessment and Plan - Plan 77-year-old male with a history of cad, copd, and hld presented to the ED with complaints of right hip pain. Femoral neck fracture, right status post arthroplasty. Continue postoperative care with PT, wound care, DVT prophylaxis and pain management counseled regarding narcotics Patient may need rehab or home health in [place]., will consult case management for assistance. Acute kidney injury, creatinine 1.5, unknown baseline, patient denies any history. Stable continue IV hydration COPD, not in exacerbation -Resume home medications, duo nebs as needed Hyperlipidemia, chronic -Resume home medications, cardiac diet History of CAD and thoracic aneurysm. Asymptomatic. Patient has good exercise tolerance. Acute urinary retention. Ortiz care. Urinalysis negative for infection. Trial of Flomax DVT prophylaxis: SCDs and Lovenox Discharge Planning: Home health care versus rehab when cleared by orthopedic surgery
[2017-12-22] MEDS: Sod Chloride 0.9% Inj 1,000 ML IV.CONT SCH (01:06)
[2017-12-22] MEDS: Budesonide-Formoterol 80/4.5 MCG 6.9 GM Inhaler INH SCH ×3 (01:07→21:26)
[2017-12-22] MEDS: Acetaminophen 325 MG Tablet PO PRN (01:08)
[2017-12-22 05:24] LABS: Hematocrit 31.9 % (39.0-51.0); Hemoglobin 10.6 gm/dL (13.0-17.0)
[2017-12-22 05:41] LABS: Calcium 7.6 mg/dL (8.5-10.1); Carbon Dioxide 27.5 meq/L (21.0-32.0); Potassium 3.9 meq/L (3.5-5.1)
[2017-12-22 06:04] LABS: CKMB Percent 0.4 % (0.0-4.0); Creatine Kinase MB 1.6 ng/mL (0.5-3.6)
[2017-12-22] MEDS: predniSONE 1 MG Tablet PO SCH (08:27)
[2017-12-22] MEDS: Multivitamin/Minerals Therapeutic Tablet PO SCH ×2 (08:28→21:24)
[2017-12-22] MEDS: Senna/Docusate Sodium 8.6/50 MG Tablet PO SCH ×2 (08:28→21:24)
[2017-12-22 10:44] LABS: Baso % (Auto) 0.4 % (0.0-2.0); Eos # (Auto) 0.4 th/mm3 (0.0-0.4); Eos % (Auto) 4.3 % (0.0-4.0); Hematocrit 32.1 % (39.0-51.0); Hemoglobin 10.6 gm/dL (13.0-17.0); Lymph # (Auto) 1.7 th/mm3 (1.0-4.8); Lymph % (Auto) 18.3 % (9.0-44.0); Mean Corpuscular HGB Conc 33.1 % (32.0-36.0); Mean Corpuscular Hemoglobin 32.6 pg (27.0-34.0); Mean Corpuscular Volume 98.5 fL (80.0-100.0); Mean Platelet Volume 7.8 fL (7.0-11.0); Mono # (Auto) 1.3 th/mm3 (0.0-0.9); Mono % (Auto) 13.9 % (0.0-8.0); Neut # (Auto) 5.9 th/mm3 (1.8-7.7); Neut % (Auto) 63.1 % (16.0-70.0); Platelet Count 116 th/mm3 (150-450); Red Blood Count 3.26 mil/mm3 (4.50-5.90); Red Cell Distribution Width 13.9 % (11.6-17.2); White Blood Count 9.4 th/mm3 (4.0-11.0)
[2017-12-22] MEDS ORDERED: Naloxone Inj 0.4 MG/ML Vial IV.PUSH PRN (11:16)
--- NOTE | 2017-12-22 11:21 | P.PN ---
Subjective Interval history: Follow-up hip surgery. T-max 101.3 denies chills, cough and diarrhea. reports current oral pain medicines not helping Physical Exam Vital signs: Vital Signs 12/21/17 12:00 12/21/17 16:00 12/21/17 20:00 Temperature 98.4 F 97.3 F L 98.7 F Pulse Rate 59 L 61 63 Respiratory Rate 18 16 17 Blood Pressure 99/56 L 106/61 131/66 Pulse Oximetry 93 L 92 L 95 12/22/17 00:00 12/22/17 01:05 12/22/17 04:00 Temperature 99.4 F 101.3 F H 100.0 F H Pulse Rate 78 81 Respiratory Rate 18 18 Blood Pressure 140/65 114/58 L Pulse Oximetry 94 L 93 L 12/22/17 08:00 Temperature 98.6 F Pulse Rate 79 Respiratory Rate 18 Blood Pressure 111/54 L Pulse Oximetry 93 L Intake & Output 12/21/17 12/22/17 12/22/17 18:59 06:59 18:59 Intake Total 1480 / 1480 Output Total 900 / 900 1775 / 1775 Balance 580 / 580 -1775 / -1775 Weight 93 kg Intake: IV 1000 / 1000 NS Inj 1,000 ML @ 100 mls/hr IV 1000 / 1000 .CONT .Q10H REPLACED BY [facility] Rx#:[id number] Oral 480 / 480 Output: Urine 900 / 900 1775 / 1775 Other: Date of Last Bowel Movement 12/19/17 12/19/17 12/19/17 Narrative: GENERAL: Well-developed and well-nourished in no distress SKIN: Warm and dry. CARDIOVASCULAR: Regular rate and rhythm. RESPIRATORY: No accessory muscle use. Clear to auscultation. Breath sounds equal bilaterally. GASTROINTESTINAL: Abdomen soft, non-tender, nondistended. Ortiz catheter in place MUSCULOSKELETAL: Extremities without clubbing, cyanosis, or edema. No obvious deformities. NEUROLOGICAL: Awake and alert. No obvious cranial nerve deficits. Motor grossly within normal limits. Five out of 5 muscle strength in the arms and legs. Normal speech. Results - Labs CBC & Chem 7: 12/22/17 10:25 12/22/17 04:05 Laboratory Results - last 24 hr 12/21/17 12/22/17 12/22/17 13:00 04:05 04:50 WBC RBC Hgb 10.6 L Hct 31.9 L MCV MCH MCHC RDW Plt Count MPV Neut % (Auto) Lymph % (Auto) [place] % (Auto) Eos % (Auto) Baso % (Auto) Neut # (Auto) Lymph # (Auto) [place] # (Auto) Eos # (Auto) Baso # (Auto) WBC Differential Differential Comment Sodium 138 Potassium 3.9 Chloride 105 Carbon Dioxide 27.5 Anion Gap 6 BUN 11 Creatinine 1.31 H Estimated GFR 53 L Random Glucose 115 H Calcium 7.6 L Total Creatine Kinase 380 H CK-MB (CK-2) 1.6 CK-MB (CK-2) % 0.4 Urine Color Yellow Urine Clarity Clear Urine pH 5.0 Ur Specific [place] 1.015 Urine Protein Negative Urine Glucose (UA) Negative Urine Ketones Negative Urine Occult Blood Negative Urine Nitrate Negative Urine Bilirubin Negative Urine Urobilinogen Less than 2 Ur Leukocyte Esterase Negative Urine RBC 1 Urine WBC 1 Ur Squamous Epith Cells 1 Hyaline Casts 6 Urine Mucus Few H Micro UA Comment Culture not ind Urine Culture Comments Culture not ind 12/22/17 10:25 WBC 9.4 RBC 3.26 L Hgb 10.6 L Hct 32.1 L MCV 98.5 MCH 32.6 MCHC 33.1 RDW 13.9 Plt Count 116 L MPV 7.8 Neut % (Auto) 63.1 Lymph % (Auto) 18.3 [place] % (Auto) 13.9 H Eos % (Auto) 4.3 H Baso % (Auto) 0.4 Neut # (Auto) 5.9 Lymph # (Auto) 1.7 [place] # (Auto) 1.3 H Eos # (Auto) 0.4 Baso # (Auto) 0.0 WBC Differential . Differential Comment Auto diff final Sodium Potassium Chloride Carbon Dioxide Anion Gap BUN Creatinine Estimated GFR Random Glucose Calcium Total Creatine Kinase CK-MB (CK-2) CK-MB (CK-2) % Urine Color Urine Clarity Urine pH Ur Specific [place] Urine Protein Urine Glucose (UA) Urine Ketones Urine Occult Blood Urine Nitrate Urine Bilirubin Urine Urobilinogen Ur Leukocyte Esterase Urine RBC Urine WBC Ur Squamous Epith Cells Hyaline Casts Urine Mucus Micro UA Comment Urine Culture Comments - Procedures Hip arthroplasty Assessment and Plan - Plan 77-year-old male with a history of cad, copd, and hld presented to the ED with complaints of right hip pain. Femoral neck fracture, right status post arthroplasty. Continue postoperative care with PT, wound care, DVT prophylaxis and pain management counseled regarding narcotics Patient may need rehab or home health in [place]., will consult case management for assistance. Acute kidney injury, creatinine 1.5, unknown baseline, patient denies any history. Improving continue IV hydration COPD, not in exacerbation -Resume home medications, duo nebs as needed Hyperlipidemia, chronic -Resume home medications, cardiac diet History of CAD and thoracic aneurysm. Asymptomatic. Patient has good exercise tolerance. Acute urinary retention. Ortiz care. Urinalysis negative for infection. Ct Flomax. Discontinue Ortiz after having bowel movement Fever likely secondary to atelectasis. No leukocytosis. Incentive spirometry. Out of bed. DVT prophylaxis: SCDs and Lovenox Discharge Planning: Home health care versus rehab when cleared by orthopedic surgery
--- NOTE | 2017-12-22 13:53 | P.PNOP ---
Subjective Interval history: The patient is resting in bed in no acute distress. The patient's is at bedside. The patient reports better pain management today when compared to yesterday. The patient has been ambulatory per the . The patient does report having a fever yesterday but is having no fevers today. The patient denies any shortness of breath, cough, or urinary complaints. Physical Exam Vital signs: Vital Signs 12/21/17 16:00 12/21/17 20:00 12/22/17 00:00 Temperature 97.3 F L 98.7 F 99.4 F Pulse Rate 61 63 78 Respiratory Rate 16 17 18 Blood Pressure 106/61 131/66 140/65 Pulse Oximetry 92 L 95 94 L 12/22/17 01:05 12/22/17 04:00 12/22/17 08:00 Temperature 101.3 F H 100.0 F H 98.6 F Pulse Rate 81 79 Respiratory Rate 18 18 Blood Pressure 114/58 L 111/54 L Pulse Oximetry 93 L 93 L 12/22/17 12:00 Temperature 97.9 F Pulse Rate 67 Respiratory Rate 17 Blood Pressure 93/51 L Pulse Oximetry 93 L Intake & Output 12/21/17 12/22/17 12/22/17 18:59 06:59 18:59 Intake Total 1480 / 1480 Output Total 900 / 900 1775 / 1775 Balance 580 / 580 -1775 / -1775 Weight 93 kg Intake: IV 1000 / 1000 NS Inj 1,000 ML @ 100 mls/hr IV 1000 / 1000 .CONT .Q10H [facility] Rx#:[id number] Oral 480 / 480 Output: Urine 900 / 900 1775 / 1775 Other: Date of Last Bowel Movement 12/19/17 12/19/17 12/19/17 Narrative: The patient's dressing is clean, dry, and intact. Mild ecchymosis about the right hip. EHL/TA/G are intact. 2+ pedal pulse. The patient's calf is soft and nontender. Sensation is intact to light touch distally. Results - Labs CBC & Chem 7: 12/22/17 10:25 12/22/17 04:05 Laboratory Results - last 24 hr 12/22/17 12/22/17 12/22/17 04:05 04:50 10:25 WBC 9.4 RBC 3.26 L Hgb 10.6 L 10.6 L Hct 31.9 L 32.1 L MCV 98.5 MCH 32.6 MCHC 33.1 RDW 13.9 Plt Count 116 L MPV 7.8 Neut % (Auto) 63.1 Lymph % (Auto) 18.3 [place] % (Auto) 13.9 H Eos % (Auto) 4.3 H Baso % (Auto) 0.4 Neut # (Auto) 5.9 Lymph # (Auto) 1.7 [place] # (Auto) 1.3 H Eos # (Auto) 0.4 Baso # (Auto) 0.0 WBC Differential . Differential Comment Auto diff final Sodium 138 Potassium 3.9 Chloride 105 Carbon Dioxide 27.5 Anion Gap 6 BUN 11 Creatinine 1.31 H Estimated GFR 53 L Random Glucose 115 H Calcium 7.6 L Total Creatine Kinase 380 H CK-MB (CK-2) 1.6 CK-MB (CK-2) % 0.4 - Procedures Hip arthroplasty Assessment and Plan - Assessment and Plan POD #2: Right hip hemiarthroplasty 1. WBAT RLE 2. Lovenox followed by ASA for DVT prophylaxis 3. Ice to the right hip PRN 4. Posterior hip precautions. 5. Stable per ortho for discharge home to [place] when medically stable. 6. F/U in the office in 1-2 weeks if still local with Dr. Beckford or BARRINGTON Scott. Follow-up should be arranged with local orthopedic if discharged home
[2017-12-22] MEDS: Enoxaparin Inj 40 MG/0.4 ML Syringe SQ SCH (15:17)
[2017-12-23] MEDS: Sod Chloride 0.9% Inj 1,000 ML IV.CONT SCH ×2 (02:29→09:08)
[2017-12-23 05:10] LABS: Calcium 7.8 mg/dL (8.5-10.1); Carbon Dioxide 25.6 meq/L (21.0-32.0); Potassium 3.9 meq/L (3.5-5.1)
[2017-12-23] MEDS: Senna/Docusate Sodium 8.6/50 MG Tablet PO SCH ×2 (08:53→21:13)
[2017-12-23] MEDS: predniSONE 1 MG Tablet PO SCH (08:53)
[2017-12-23] MEDS: Multivitamin/Minerals Therapeutic Tablet PO SCH ×2 (08:55→21:13)
--- NOTE | 2017-12-23 12:23 | P.PN ---
Subjective Interval history: Follow-up hip injury. States he is doing okay. T-max 100.2. Home oxygen as needed. Physical Exam Vital signs: Vital Signs 12/22/17 15:50 12/22/17 20:09 12/23/17 00:27 Temperature 96.8 F L 98.9 F 100.2 F H Pulse Rate 65 68 65 Respiratory Rate 17 18 18 Blood Pressure 90/54 L 112/61 115/76 Pulse Oximetry 91 L 93 L 95 12/23/17 02:00 12/23/17 05:09 12/23/17 08:00 Temperature 99.1 F 98.1 F Pulse Rate 71 62 Respiratory Rate 17 18 18 Blood Pressure 116/61 108/59 L Pulse Oximetry 92 L 92 L Intake & Output 12/22/17 12/23/17 12/23/17 18:59 06:59 18:59 Intake Total 1959 480 / 480 Output Total 1999 Balance 1959 -1520 / -1520 Weight 93 kg Intake: IV 1000 / 1000 NS Inj 1,000 ML @ 100 mls/hr IV 1000 / 1000 .CONT .Q10H [facility] Rx#:[id number] Oral 960 / 960 480 / 480 Output: Urine 1999 Other: # Voids 3 Date of Last Bowel Movement 12/19/17 12/19/17 # Bowel Movements 1 Narrative: The patient's dressing is clean, dry, and intact. Mild ecchymosis about the right hip. EHL/TA/G are intact. 2+ pedal pulse. The patient's calf is soft and nontender. Sensation is intact to light touch distally. Results - Labs CBC & Chem 7: 12/22/17 10:25 12/23/17 03:53 Laboratory Results - last 24 hr 12/23/17 03:53 Sodium 138 Potassium 3.9 Chloride 105 Carbon Dioxide 25.6 Anion Gap 7 BUN 9 Creatinine 1.06 Estimated GFR 68 L Random Glucose 106 Calcium 7.8 L - Procedures Hip arthroplasty Assessment and Plan - Plan 77-year-old male with a history of cad, copd, and hld presented to the ED with complaints of right hip pain. Femoral neck fracture, right status post arthroplasty. Continue postoperative care with PT, wound care, DVT prophylaxis and pain management counseled regarding narcotics Patient may need rehab or home health in [place]., will consult case management for assistance. Acute kidney injury, creatinine 1.5, unknown baseline, patient denies any history. Resolved discontinue IV hydration COPD, not in exacerbation on home oxygen as needed -Resume home medications, duo nebs as needed Hyperlipidemia, chronic -Resume home medications, cardiac diet History of CAD and thoracic aneurysm. Asymptomatic. Patient has good exercise tolerance. Acute urinary retention. Ortiz care. Urinalysis negative for infection. Resolved Fever likely secondary to atelectasis. No leukocytosis. Incentive spirometry. Out of bed. Improved DVT prophylaxis: SCDs and Lovenox Discharge Planning: Stable for discharge when arrangements made
--- NOTE | 2017-12-23 18:22 | P.PNOP ---
Subjective Interval history: Patient is resting in bed in no acute distress. The patient reports having daily improvement in pain. The patient is taking less pain medication today than yesterday. The patient reports being ambulatory. Physical Exam Vital signs: Vital Signs 12/22/17 20:09 12/23/17 00:27 12/23/17 02:00 Temperature 98.9 F 100.2 F H Pulse Rate 68 65 Respiratory Rate 18 18 17 Blood Pressure 112/61 115/76 Pulse Oximetry 93 L 95 12/23/17 05:09 12/23/17 08:00 12/23/17 12:00 Temperature 99.1 F 98.1 F 97.5 F L Pulse Rate 71 62 68 Respiratory Rate 18 18 18 Blood Pressure 116/61 108/59 L 120/63 Pulse Oximetry 92 L 92 L 93 L Intake & Output 12/22/17 12/23/17 12/23/17 18:59 06:59 18:59 Intake Total 1959 480 / 480 Output Total 1999 Balance 1959 -1520 / -1520 Weight 93 kg Intake: IV 1000 / 1000 NS Inj 1,000 ML @ 100 mls/hr IV 1000 / 1000 .CONT .Q10H [facility] Rx#:[id number] Oral 960 / 960 480 / 480 Output: Urine 1999 Other: # Voids 3 Date of Last Bowel Movement 12/19/17 12/19/17 12/23/17 # Bowel Movements 1 Narrative: The patient's dressing is clean, dry, and intact. EHL/TA/G are intact. 2+ pedal pulse. The patient's calf is soft and nontender. Sensation is intact to light touch distally. Results - Labs CBC & Chem 7: 12/22/17 10:25 12/23/17 03:53 Laboratory Results - last 24 hr 12/23/17 03:53 Sodium 138 Potassium 3.9 Chloride 105 Carbon Dioxide 25.6 Anion Gap 7 BUN 9 Creatinine 1.06 Estimated GFR 68 L Random Glucose 106 Calcium 7.8 L - Procedures Hip arthroplasty Assessment and Plan - Assessment and Plan POD #3: Right hip hemiarthroplasty 1. WBAT RLE 2. Lovenox followed by ASA for DVT prophylaxis 3. Ice to the right hip PRN 4. Posterior hip precautions. 5. Stable per ortho for discharge home to [place] when medically stable. Orthopedics signing off. 6. F/U in the office in 1-2 weeks if still local with Dr. Beckford or BARRINGTON Scott. Follow-up should be arranged with local orthopedic if discharged home
[2017-12-23] MEDS: Enoxaparin Inj 40 MG/0.4 ML Syringe SQ SCH (18:30)
[2017-12-23] MEDS: Budesonide-Formoterol 80/4.5 MCG 6.9 GM Inhaler INH SCH (21:14)
[2017-12-24] MEDS: Senna/Docusate Sodium 8.6/50 MG Tablet PO SCH ×2 (08:14→20:39)
[2017-12-24] MEDS: Multivitamin/Minerals Therapeutic Tablet PO SCH ×2 (08:14→20:39)
[2017-12-24] MEDS: predniSONE 1 MG Tablet PO SCH (08:15)
--- NOTE | 2017-12-24 12:44 | P.DS ---
Date of admission: 12/20/17 01:38 Primary care physician: No Primary Care Physician Brief History from admission: 77-year-old male with a history of cad, copd, sleep apnea, AAA (unknown size) and hld presented to the ED with complaints of right hip pain. Patient is from [place] here visiting. is an a RN. Patient states that he fell on his right hip this evening after loosing his balance stepping near a curb. Patient denies loss of consciousness but did gently hit his head on the side of the car. He states the pain is a sharp, intermittent pain, 6/10, to the right hip with no radiation or associated symptoms. Worse with movement and better with pain medication. Patient denies any chest pain or shortness of breath. Patient is a very athletic person, gym daily and he walks 3 miles a day. DS: Medications - Discharge Medications Prescriptions: aspirin 325 mg PO DAILY 30 Days #30 tab enoxaparin [Lovenox] 40 mg SUB-Q DAILY 10 Days #10 units hydrocodone-acetaminophen [[place]] 1 - 2 tab PO Q4-6H #50 tab DS: Summary Hospital Course: 77-year-old male with a history of cad, copd, and hld presented to the ED with complaints of right hip pain. Femoral neck fracture, right status post arthroplasty. Continue postoperative care with PT, wound care, DVT prophylaxis and pain management counseled regarding narcotics Patient may need rehab or home health in [place]., will consult case management for assistance. Acute kidney injury, creatinine 1.5, unknown baseline, patient denies any history. Resolved discontinued IV hydration COPD, not in exacerbation on home oxygen as needed -Resume home medications, duo nebs as needed Hyperlipidemia, chronic -Resume home medications, cardiac diet History of CAD and thoracic aneurysm. Asymptomatic. Patient has good exercise tolerance. Acute urinary retention. Ortiz care. Urinalysis negative for infection. Resolved Fever likely secondary to atelectasis. No leukocytosis. Incentive spirometry. Out of bed. Improved DVT prophylaxis: SCDs and Lovenox - Time Spent with Patient Total time spent providing and/or coordinating discharge services: Greater than 30 minutes - Quality: VTE Deep Vein Thrombosis/Pulmonary Embolism Present on Admission: No Exam Vital signs: Vital Signs 12/23/17 19:41 12/23/17 21:12 12/24/17 00:31 Temperature 99.1 F 98.2 F Pulse Rate 71 67 Respiratory Rate 18 18 Blood Pressure 119/56 L 115/55 L Pulse Oximetry 92 L 92 L 92 L 12/24/17 03:58 12/24/17 08:00 12/24/17 12:00 Temperature 98.1 F 98.7 F 99.8 F H Pulse Rate 60 66 71 Respiratory Rate 18 18 20 Blood Pressure 124/62 111/58 L 103/58 L Pulse Oximetry 92 L 92 L 91 L Intake & Output 12/23/17 12/24/17 12/24/17 18:59 06:59 18:59 Intake Total 480 / 480 Output Total 1999 Balance -1999 480 / 480 Weight 93 kg Intake: Oral 480 / 480 Output: Urine 1999 Other: # Voids 4 Date of Last Bowel Movement 12/23/17 12/23/17 12/23/17 # Bowel Movements 1 0 Narrative: The patient's dressing is clean, dry, and intact. Mild ecchymosis about the right hip. EHL/TA/G are intact. 2+ pedal pulse. The patient's calf is soft and nontender. Sensation is intact to light touch distally. Results Procedures completed during hospitalization: Hip arthroplasty - Impressions ITS Impressions Pelvis X-Ray 12/20/17 00:23 CONCLUSION: Fracture of the right femoral neck. Chest X-Ray 12/20/17 00:47 CONCLUSION: The lungs are clear. Hip X-Ray 12/20/17 16:01 CONCLUSION: Right hip hemiarthroplasty now noted. Hand X-Ray 12/20/17 16:26 CONCLUSION: Moderate severity osteoarthritic findings of the hand. No evidence of fracture. Discharge Plan - Discharge Disposition Patient Disposition: 62 Rehab Inpatient - Discharge Condition Condition: Stable - Discharge Order Discharge Orders: Discharge Order (Routine); Ordered 12/23/17 Ordered By: Frank Moore - Discharge Details Discharge Comment: F/U in the office in 1-[address] Beckford or BARRINGTON Scott - Physicians Team Primary Care Provider: Primary Care Physici,No Attending Provider: Frank Moore Other Providers: Jose L Beckford MD
[2017-12-24] MEDS: Budesonide-Formoterol 80/4.5 MCG 6.9 GM Inhaler INH SCH ×2 (13:00→20:40)
[2017-12-24] MEDS: Enoxaparin Inj 40 MG/0.4 ML Syringe SQ SCH (16:11)
[2017-12-25] MEDS: predniSONE 1 MG Tablet PO SCH (08:31)
[2017-12-25] MEDS: Multivitamin/Minerals Therapeutic Tablet PO SCH (08:32)
[2017-12-25] MEDS: Senna/Docusate Sodium 8.6/50 MG Tablet PO SCH (08:32)
[2017-12-25] MEDS: Budesonide-Formoterol 80/4.5 MCG 6.9 GM Inhaler INH SCH (08:32)
[2017-12-25 09:31] VITALS: RESP 18
[2017-12-25] MEDS: Enoxaparin Inj 40 MG/0.4 ML Syringe SQ SCH (14:29)
[2017-12-25 14:36] VITALS: BP 94/56; PULSE 66; TEMP 98.1; O2SAT 93
== END 2017-12-25 15:01 ==
LOC: PHED 23:37 → PHEDA 12-20 01:38 → N06 12-20 03:19
PROVIDERS: ADMIT Internal Medicine; ATTEND Internal Medicine